=== PATIENT | male | born 1955 | race Caucasian/White ===

== ENCOUNTER 2020-07-08 14:20 | Outpatient (CLI) | payer MEDICARE ==
--- NOTE | 2020-07-08 15:03 | ULT ---
Exam: Bilateral renal ultrasound HISTORY: Stage III chronic kidney disease COMPARISON: None FINDINGS: Right kidney: Normal cortical echotexture. No hydronephrosis. There is right renal cortical thinning. Anechoic focus emanating from the right renal cortex measures 2.4 x 2.2 x 2.2 cm and emanates from the lower pole. Right kidney measurements: 5.3 x 13.3 x 5.3 cm. Left kidney: Normal cortical echotexture. No hydronephrosis. There is left renal cortical thinning. A nechoic focus emanating from the mid left renal cortex measures 2.5 x 2.2 x 2.4 cm. Left kidney measurements 6.6 x 14.3 x 6.0 cm. Urinary bladder: Normal mucosa. IMPRESSION: 1. Bilateral renal cortical thinning 2. Bilateral renal cortical cyst 3. No hydronephrosis.
== END 2020-07-08 14:21 | disposition home or self-care (01) ==
LOC: BICULT 14:20
PROVIDERS: ATTEND Internal Medicine Nephrology
DX: N18.30 Chronic kidney disease, stage 3 unspecified (principal); N28.1 Cyst of kidney, acquired; N28.89 Other specified disorders of kidney and ureter
CPT/HCPCS: 76770

== ENCOUNTER 2021-02-09 19:30 | Outpatient (CLI) | payer MEDICARE | END 2021-02-09 19:31 | disposition home or self-care (01) | LOC: SLEEPLAB 19:30 | PROVIDERS: ATTEND Psychiatry & Neurology Neurology | DX: G47.33 Obstructive sleep apnea (adult) (pediatric) (principal); R06.83 Snoring; G47.10 Hypersomnia, unspecified; G47.00 Insomnia, unspecified; I10 Essential (primary) hypertension; I48.91 Unspecified atrial fibrillation | CPT/HCPCS: 95811 ==